=== PATIENT | male | born 1980 | race Caucasian/White ===

== ENCOUNTER 2021-06-06 10:06 | Outpatient (REF) | payer OTHER, SELFPAY ==
[2021-06-06 11:10] LABS: MANUAL DIFF FLAG NO
[2021-06-06 11:17] LABS: Basophils Absolute Auto 0.1 X10*3/uL (0.0-0.2); Eosinophils Absolute Auto 0.2 X10*3/uL (0.0-0.4); Eosinophils Percent Auto 2.4 % (0-4); Hemoglobin 15.1 g/dl (14.0-18.0); Imm Gran Abs Auto 0.03 X10*3/uL (0.00-0.03); Imm Gran Pct Auto 0.5 % (0.0-0.4); Lymphocytes Absolute Auto 1.9 X10*3/uL (1.2-4.9); Lymphocytes Percent Auto 30.4 % (20-40); Mean Corpuscular HGB Conc 33.6 g/dl (31.0-36.0); Mean Corpuscular Hemoglobin 30.6 pg (27.0-33.0); Mean Corpuscular Volume 91.1 fL (80-98); Mean Platelet Volume 9.5 fL (9.4-12.4); Monocytes Absolute Auto 0.5 X10*3/uL (0.1-1.2); Monocytes Percent Auto 7.4 % (2-11); Neutrophils Absolute Auto 3.6 X10*3/uL (2.0-8.3); Neutrophils Percent Auto 58.3 % (45-73); Platelet Count 309 X10*3/uL (160-400); Red Blood Count 4.94 X10*6/uL (4.60-5.80); Red Cell Distribution Width 12.9 % (11.0-16.0); White Blood Count 6.2 X10*3/uL (4.8-10.8)
[2021-06-06 11:46] LABS: Alanine Aminotransferase 17 U/L (0-40); Albumin Level 4.3 g/dL (3.5-5.0); Alkaline Phosphatase 56 U/L (39-117); Anion Gap 10 (12-20); Aspartate Amino Transferase 18 U/L (5-37); Bilirubin Total 0.7 mg/dL (0.0-1.0); Blood Urea Nitrogen 14 mg/dL (9-16); Calcium 9.6 mg/dL (8.4-10.2); Carbon Dioxide 27 mmol/L (22-29); Chloride 105 mmol/L (96-108); Cholesterol 202 mg/dL; Estimated Glomerular Filt Rate > 60; Glucose Fasting 82 mg/dL (60-99); HDL Cholesterol 48 mg/dL; LDL Cholesterol Calculated 143 mg/dl; Potassium 4.4 mmol/L (3.3-5.1); Sodium 138 mmol/L (135-145); Total Protein 6.8 g/dL (6.5-8.0); Triglycerides 56 mg/dL
[2021-06-06 12:09] LABS: Prostate Specific Antigen 0.46 ng/mL (<0.05-4.0)
== END 2021-06-06 10:07 | disposition home or self-care (01) ==
LOC: HO.LAB 10:06
PROVIDERS: PCP Internal Medicine Medical Oncology; Visit Provider Internal Medicine Medical Oncology
DX: Z00.00 Encounter for general adult medical examination without abnormal findings (principal); Z12.5 Encounter for screening for malignant neoplasm of prostate
CPT/HCPCS: 36415; 80053; 80061; 84153; 85025

== ENCOUNTER 2024-12-26 18:41 | Emergency (ER) | payer OTHER, SELFPAY ==
[2024-12-26 18:57] VITALS: BP 107/71; PULSE 99; RESP 16; TEMP 37.3; O2SAT 98; BMI 25.1
[2024-12-26 19:16] LABS: MANUAL DIFF FLAG NO
[2024-12-26 19:17] LABS: Basophils Percent Auto 0.6 % (0-2); Eosinophils Absolute Auto 0.1 X10*3/uL (0.0-0.4); Eosinophils Percent Auto 2.4 % (0-4); Hematocrit 44.1 % (42.0-52.0); Hemoglobin 15.1 g/dl (14.0-18.0); Imm Gran Abs Auto 0.01 X10*3/uL (0.00-0.03); Imm Gran Pct Auto 0.3 % (0.0-0.4); Lymphocytes Absolute Auto 0.6 X10*3/uL (1.2-4.9); Lymphocytes Percent Auto 18.5 % (20-40); Mean Corpuscular HGB Conc 34.2 g/dl (31.0-36.0); Mean Corpuscular Hemoglobin 29.4 pg (27.0-33.0); Mean Platelet Volume 9.9 fL (9.4-12.4); Monocytes Absolute Auto 0.5 X10*3/uL (0.1-1.2); Neutrophils Absolute Auto 2.2 x10*3/uL (2.0-8.3); Neutrophils Percent Auto 63.2 % (45-73); Platelet Count 153 X10*3/uL (160-400); Red Blood Count 5.13 X10*6/uL (4.60-5.80); Red Cell Distribution Width 12.8 % (11.0-16.0); White Blood Count 3.4 X10*3/uL (4.8-10.8)
[2024-12-26 19:31] LABS: Alanine Aminotransferase 26 U/L (0-40); Albumin Level 3.9 g/dL (3.5-5.0); Alkaline Phosphatase 56 U/L (39-117); Anion Gap 13 (12-20); Aspartate Amino Transferase 30 U/L (5-37); Bilirubin Total 0.7 mg/dL (0.0-1.0); Blood Urea Nitrogen 15 mg/dL (9-16); Calcium 8.9 mg/dL (8.4-10.2); Carbon Dioxide 24 mmol/L (22-29); Chloride 101 mmol/L (96-108); Creatinine Clr Calc Pharmacy 87.5; Estimated Glomerular Filt Rate > 60; Glucose Random 93 mg/dL (60-115); Lipase 13 U/L (8-78); Sodium 134 mmol/L (135-145); Total Protein 6.9 g/dL (6.5-8.0)
--- NOTE | 2024-12-26 19:43 | ED.GENADULT ---
HPI - General Adult General Chief complaint: Fever Stated complaint: fever for more than 3 days highest 105.4 lastnight Time Seen by Provider: 12/26/24 21:08 Source: patient Mode of arrival: ambulatory Limitations: no limitations History of Present Illness ED Provider: HPI narrative: patient has been having on and off fever for last 3 days no cough no shortness a breath no rash no joint pain no abdominal pain no nausea no vomiting no upper respiratory symptoms patient is a family member was sick with 5th disease 1 week ago denies any urinary complaints for last 24 hours patient has been having diarrhea 6- 7 times last bowel movement was in afternoon, no nausea no vomiting no abdominal pain no blood in the urine no recent antibiotic intake no recent travel diarrhea is getting better now no urinary complaints Related Data Allergies Allergy/AdvReac Type Severity Reaction Status Date / Time No Known Allergies Allergy Verified 12/26/24 19:01 Review of Systems Review of Systems: Yes all other systems are reviewed and are negative PMFSH Social History Social History Alcohol intake: never Smoked in Last 30 Days: No Use of substances other than those prescribed or required for medical reasons: Yes Substance Use Type: Marijuana Advance Directives: No Advance Directives Information Provided: No Do you have a plan to hurt others: No Plan Physical Exam ED Vital Signs: Vital Signs - 24 hr 12/26/24 18:57 12/26/24 21:11 12/26/24 21:58 Temperature 99.2 F 99.9 F 99.1 F Pulse Rate 99 93 90 Respiratory Rate 16 18 18 Blood Pressure 107/71 127/74 125/83 Pulse Oximetry 98 97 98 Oxygen Delivery Method Room Air Room Air Room Air 12/26/24 23:18 12/26/24 23:19 Temperature 98.3 F 98.3 F Pulse Rate 89 89 Respiratory Rate 16 16 Blood Pressure 115/68 115/68 Pulse Oximetry 96 96 Oxygen Delivery Method Room Air Room Air BMI result Body Mass Index 25.1 Appearance: Alert. Oriented X3. No acute distress. Eyes: PERRLA, No Nystagmus ENT: Pharynx normal. Oral Mucosa moist Neck: Normal inspection. Neck supple. CVS: Normal heart rate and rhythm. Pulses normal. Respiratory: No respiratory distress. Equal air entry bilateral, no wheezing/rales/rhonchi Abdomen: Soft and nontender. Bowel sounds are present, no mass palpable, no CVA tenderness Skin: Skin warm and dry. Normal skin color. Normal skin turgor. Extremities: No lower extremity edema. No calf tenderness Neuro: Oriented X 3. No motor deficit. No sensory deficit.No cerebellar signs , cranial nerves II-XII intact Course Course Course Narrative: RME: 44-year-old male presents to ED for fever and diarrhea. Patient states no abdominal pain nausea, vomiting, chest pain, shortness of breath or coughing. SARs labs stool sample ordered. Medical Decision Making Medical Decision Making [facility] Narrative: patient with fever without any other symptoms except for the diarrhea which is getting better lab workup is negative for any bacterial infection likely viral infection norovirus as the cause will check the urine to rule out UTI plan to discharge the patient for supportive treatment Lab Data [facility] Lab Attestation statement: I reviewed the patient's lab results. 12/26/24 19:11 12/26/24 19:11 Labs: Lab Results 12/26/24 12/26/24 12/26/24 Range/Units 19:11 22:03 22:04 WBC 3.4 L (4.8-10.8) X10*3/uL RBC 5.13 (4.60-5.80) X10*6/uL Hgb 15.1 (14.0-18.0) g/dl Hct 44.1 (42.0-52.0) % MCV 86.0 (80.0-98.0) fL MCH 29.4 (27.0-33.0) pg MCHC 34.2 (31.0-36.0) g/dl RDW 12.8 (11.0-16.0) % Plt Count 153 L (160-400) X10*3/uL MPV 9.9 (9.4-12.4) fL Immature Gran % (Auto) 0.3 (0.0-0.4) % Neut % (Auto) 63.2 (45-73) % Lymph % (Auto) 18.5 L (20-40) % [place] % (Auto) 15.0 H (2-11) % Eos % (Auto) 2.4 (0-4) % Baso % (Auto) 0.6 (0-2) % Lymph # (Auto) 0.6 L (1.2-4.9) X10*3/uL [place] # (Auto) 0.5 (0.1-1.2) X10*3/uL Eos # (Auto) 0.1 (0.0-0.4) X10*3/uL Baso # (Auto) 0.0 (0.0-0.2) X10*3/uL Abs Immat Gran (auto) 0.01 (0.00-0.03) X10*3/uL Absolute Neuts (auto) 2.2 (2.0-8.3) x10*3/uL Absolute Nucleated RBC 0.000 (0.0-0.012) X10*3/uL Nucleated RBC % (auto) 0.0 (0.0-0.2) /100WBC Sodium 134 L (135-145) mmol/L Potassium 4.0 (3.3-5.1) mmol/L Chloride 101 (96-108) mmol/L Carbon Dioxide 24 (22-29) mmol/L Anion Gap 13 (12-20) BUN 15 (9-16) mg/dL Creatinine 1.02 (0.5-1.4) mg/dL Estim Creat Clear Calc 87.5 Estimated GFR > 60 Random Glucose 93 (60-115) mg/dL Calcium 8.9 D (8.4-10.2) mg/dL Total Bilirubin 0.7 (0.0-1.0) mg/dL AST 30 (5-37) U/L ALT 26 (0-40) U/L Alkaline Phosphatase 56 (39-117) U/L Total Protein 6.9 (6.5-8.0) g/dL Albumin 3.9 (3.5-5.0) g/dL Lipase 13 (8-78) U/L Urine Color Yellow Urine Appearance Clear Urine pH 5.5 (5.0-9.0) Ur Specific [place] 1.020 (1.005-1.025) Urine Protein Trace (Neg-Trace) mg/dL Urine Glucose (UA) Negative (Negative) mg/dL Urine Ketones 80 (Negative) mg/dL Urine Blood Negative (Negative) Urine Nitrite Negative (Negative) Ur Leukocyte Esterase Negative (Negative) C. difficile Tox B Gene NEGATIVE (Negative) Influenza Type A (PCR) NEGATIVE (Negative) Influenza Type B (PCR) NEGATIVE (Negative) RSV RNA Qual (PCR) NEGATIVE (Negative) SARS-CoV-2 RNA (RT-PCR) NEGATIVE (Negative) Discharge Plan Discharge Clinical Impression: Viral infection Patient Disposition: Home, Self-Care Instructions: Viral Syndrome (ED) Additional Instructions: drink plenty of fluids take Tylenol/ Motrin as advised for fever follow up with your PCP if not better Interventions: ED Discharge Assessment Last Done: 12/26/24 23:19 Discharge Date/Time: 12/26/24 23:20 Print Language: Portuguese
[2024-12-26 19:53] LABS: Influenza A PCR NEGATIVE (Negative); Influenza B PCR NEGATIVE (Negative); Resp Syncy Virus RNA Qual PCR NEGATIVE (Negative); SARS COV2 PCR INHOUSE NEGATIVE (Negative)
--- OUTSIDE RECORDS SUMMARY | 2024-12-26 21:02 | XMS_ITS ---
Author Organization [facility] Address [address] [place] [phone] Care Team Providers Care Counter Top Maker Name Role Phone Esteban DE LA CRUZ, Bang Primary Care Provider Verito Brown Jr, [facility] REASON FOR VISIT called patient 3 times and no answer Encounters Encounter Location Date Provider Diagnosis [facility] [address] [place] [phone] 11/10/2024 Ramsey Vasquez Jr Plan Of Treatment No Information Progress Notes * AAYUSH SHOEMAKERDOB:1979 (44 yo M)Acc No.[id number]:11/10/2024 Patient:?AAYUSH SHOEMAKER :1980???Age:44 Y???Sex:Male Address:[address] [place] [address], [address] * true * Date:? Generated for Aguilar stovall/Gunjan/eTransmitting on:?12/26/2024 09:02 PM EDT
--- OUTSIDE RECORDS SUMMARY | 2024-12-26 21:02 | XMS_ITS | Patient Health Record ---
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 Name Role Phone Bang Orellana Primary Care Provider Allergies Allergen (clinical drug ingredient) Drug/Non Drug Allergy documented on EMR Reaction Allergy Type Onset Date Status No Known Drug Allergy Unknown Drug Allergy Active Results Component Value Reference Range Notes URINE DIP STICK Reviewed date:10/21/2024 02:31:44 PM Interpretation: Performing Lab: Notes/Report: SG 1.030 1.005 - 1.025 pH 5.0 5.0 - 9.0 JORGE LUIS Negative Negative - NIT Negative Negative - PRO 15 Negative - Trace GLU Negative Negative - KET 15 Negative - UBG 0.2 0.1 - 1.8 LIZY 1 0.2 - 1.3 BLD Negative Negative - Reason For Referral Reason Consult and Treat Screen for Colon Cancer Diagnosis 1 Screen for colon can cer (Z12.11) Referral Organization Bang Orellana III, MD Referring Provider First Name Bang Referring Provider Last Name Esteban Referring Provider Speciality Internal M edicine Referred Provider Ramsey Vasquez Referred Provider Specialty Gastroentero logy General Notes DPham 10/24/2024 11:39:22 AM > Referral and progress note faxed Referral Priority Routine Medications Medication SIG (Take, Route, Frequency, Duration) Notes Start Date End Date Status Cyclobenzaprine HCl 10 MG 1 tablet at bedtime Orally three times a a day When needed 07/12/2024 Active Sildenafil Citrate 100 MG TAKE 1 TABLET BY MOUTH EVERY DAY NEEDED Active Social History Tobacco Use: Social History Observation Description Date Details (start date - stop date) Former Smoker NA - NA Sex Assigned At : Social History Observation Description Sex Assigned At Male Tobacco Control (Standard) Question Answer Notes Tobacco use: Former smoker How long has it been since you last smoked? 1-5 years Additional Findings: Tobacco non-user Ex-cigaret te smoker AUDIT-C (Standard) Question Answer Notes Did you have a drink contain ing alcohol in the past year? Yes How often did you have six o r more drinks on one occasion in the past year? Less than monthly (1 point) How many drinks did you have on a typical day when you were drinking in the past year? 1 or 2 drinks (0 point) How often did you have a dri nk containing alcohol in the past year? Never (0 point) Points 1 Interpretation Negative Problems Problem Type SNOMED Code ICD Code Onset Dates Problem Status W/U Status Risk Notes Problem 3393355 Former smoker (Z87.891) Active confirmed He is vaping. He has stopped smoking cigarettes. Problem 709387597 Chronic sinusitis, unspecified (J32.9) Active confirmed Problem 723860180 Deviated nasal septum (J34.2) Active confirmed He is completely free of symptoms from this process. No therapy is necessary. Problem Erectile dysfunction (disorder) (010251326) Erectile dysfunction, unspecified erectile dysfunction type (N52.9) Active confirmed This problem is well compensated with medication. Problem 103052113 Chronic insomnia (F51.04) Active confirmed He found melatonin helpful but his insomnia persists. I prescribed trazodone to take along with the melatonin. Problem 34989577 Bilateral impacted cerumen (H61.23) Active confirmed Bilateral warm water in your lavage was conducted. The impactions were removed. No complications were had. He reported the discomfort resolved and a hearing improved. Problem 229018008 Lumbar back pain (M54.50) Active confirmed Vital Signs Heart Rate 71 /min 10/21/2024 Temperature 99.1 degrees Fahrenheit 10/21/2024 Blood pressure diastolic 76 mm Hg 10/21/2024 Height 70.8 in 12/26/2024 Blood pressure systolic 130 mm Hg 10/21/2024 Weight 170 lbs 12/26/2024 BMI 23.84 kg/m2 12/26/2024 Encounters Encounter Location Date Provider Diagnosis Bang Orellana III, MD [address] [place] [address] [place] [address] 12/26/2024 Bang Orellana III, MD [address] [place] [address] [place] [address] 07/12/2024 Bang Orellana Strain of lumbar paraspinous muscle, initial encounter S39.012A and Former smoker Z87.891 Bang Orellana III, MD [address] [place] [address] [place] [address] 07/14/2024 Bang Orellana Chronic insomnia F51.04 ; Acute left-sided low back pain without sciatica M54.50 ; Erectile dysfunction, unspecified erectile dysfunction type N52.9 ; Former smoker Z87.891 and BPH (benign prostatic hyperplasia) N40.0 Bang Orellana III, MD [address] [place] [address] [place] [address] 10/21/2024 Bang Orellana Chronic insomnia F51.04 ; Erectile dysfunction, unspecified erectile dysfunction type N52.9 ; Former smoker Z87.891 and Deviated nasal septum J34.2 Bang Orellana III, MD [address] [place] [address] [place] [address] 09/16/2024 Bang Orellana Assessments Encounter Date Diagnosis (ICD Code) Assessment Notes Treatment Notes Treatment Clinical Notes 07/12/2024 Former smoker (ICD-10 - Z87.891) He is vaping. He has stopped smoking cigarettes. 07/12/2024 Strain of lumbar paraspinous muscle, initial encounter (ICD-10 - S39.012A) He was staying out of work for the remainder of the week. He will use a heating. For 20 minutes 3 times a day on medium heat. He will use ibuprofen. I have prescribed cyclobenzaprine 3 times a day for a week. 07/14/2024 Chronic insomnia (ICD-10 - F51.04) He found melatonin helpful but his insomnia persists. I prescribed trazodone to take along with the melatonin. 07/14/2024 Acute left-sided low back pain without sciatica (ICD-10 - M54.50) He says the back pain is in proving and he is able to conduct all of the activities of daily life without severe pain. The pain returns if he does heavy lifting or exertion. He will continue with conservative measures. 10/21/2024 Erectile dysfunction, unspecified erectile dysfunction type (ICD-10 - N52.9) This problem is well compensated with medication. 10/21/2024 Chronic insomnia (ICD-10 - F51.04) He found melatonin helpful but his insomnia persists. I prescribed trazodone to take along with the melatonin. 07/14/2024 Erectile dysfunction, unspecified erectile dysfunction type (ICD-10 - N52.9) This problem is well compensated with medication. 10/21/2024 Former smoker (ICD-10 - Z87.891) He is vaping. He has stopped smoking cigarettes. 07/14/2024 Former smoker (ICD-10 - Z87.891) He is vaping. He has stopped smoking cigarettes. 10/21/2024 Deviated nasal septum (ICD-10 - J34.2) He is completely free of symptoms from this process. No therapy is necessary. 07/14/2024 BPH (benign prostatic hyperplasia) (ICD-10 - N40.0) He rises from sleep once a night. We discussed lifestyle modification as an effective means of controlling nocturia at his age. Plan Of Treatment Pending Test Test Name Order Date PROFILE, FASTING (COMPREHENSIVE METABOLI C) 05/10/2019 PROFILE, FASTING (COMPREHENSIVE METABOLI C) 06/11/2022 PROFILE, FASTING (COMPREHENSIVE METABOLI C) 09/03/2016 PROFILE, FASTING (COMPREHENSIVE METABOLI C) 06/04/2021 PROFILE, FASTING (COMPREHENSIVE METABOLI C) 07/25/2015 PROFILE, FASTING (COMPREHENSIVE METABOLI C) 05/30/2020 PROFILE, FASTING (COMPREHENSIVE METABOLI C) 10/21/2024 PROFILE, RANDOM (COMPREHENSIVE METABOLIC ) 07/28/2014 LIPID PANEL 05/30/2020 LIPID PANEL 05/10/2019 LIPID PANEL 07/28/2014 LIPID PANEL 09/03/2016 LIPID PANEL 07/25/2015 PSA, TOTAL 10/21/2024 PSA, TOTAL 05/30/2020 PSA, TOTAL 06/11/2022 PSA, TOTAL 05/10/2019 PSA, TOTAL 06/04/2021 CBC w DIFF 07/25/2015 CBC w DIFF 05/30/2020 CBC w DIFF 06/11/2022 CBC w DIFF 07/28/2014 CBC w DIFF 05/10/2019 CBC w DIFF 09/03/2016 CBC w DIFF 06/04/2021 TESTOSTERONE, TOTAL 07/25/2015 CBC WITH AUTO DIFF 10/21/2024 Lipid Panel 10/21/2024 Lipid Panel 06/11/2022 Next Appt Details Provider Name:Bang Orellana, 10/27/2025 02:15:00 PM, [address] [place] [address] , [address], [place], [phone], Insurance Providers Payer Name Payer Address Payer Phone Subscriber Number Group Number Insured Name Patient Relationship to Insured Coverage Start Date Coverage End Date [employer] ([employer]) [address] [place] [id number] Brian Lai Self - patient is the insured Medical (General) History Medical History History ICD Code sinusitis intermittent low back pain nasal septum deviated to right insomnia due to stress smoker Covid19 January 2022 Lower back pain Surgical History Surgery Date(Month/Year) No history Hospitalization History Reason Date(Month/Year) No history
--- OUTSIDE RECORDS SUMMARY | 2024-12-26 21:02 | XMS_ITS ---
Author Organization Bang Orellana III, MD Address [address] [place] [address] [place] [address] Care Team Providers Care Collections Manager Name Role Phone Bang Orellana Primary Care Provider REASON FOR VISIT Rx Request Medications Medication SIG (Take, Route, Frequency, Duration) Notes Start Date End Date Status Cyclobenzaprine HCl 10 MG 1 tablet at bedtime Orally three times a a day for 30 days When needed 07/12/2024 01/14/2025 Active Social History Sex Assigned At : Social History Observation Description Sex Assigned At Male Encounters Encounter Location Date Provider Diagnosis Bang Orellana III, MD [address] [place] [address] [address] [facility] [place] [address] 09/16/2024 Bang Orellana Plan Of Treatment Medication Medication Name Sig Start Date Stop Date Notes Cyclobenzaprine HCl 10 MG 1 tablet at be dtime Orally three times a a day for 30 days 07/12/2024 01/14/2025 Next Appt Details Provider Name:Bang Orellana, 10/27/2025 02:15:00 PM, [address] [place] [address] [place], [address], Progress Notes * Brina JAMADOB:1979 (44 yo M)Acc No.[id number]:09/16/2024 Patient:?Brian JAMA :1980???Age:44 Y???Sex:Male Address: [place], [address] * Refills? Refill Cyclobenzaprine HCl Tablet, 10 MG, Orally, 30, 1 tablet at bedtime, three times a a day, 30 days, Refills=3 * true * Date:? Generated for Aguilar stovall/Gunjan/Huey on:?12/26/2024 09:02 PM EDT
--- OUTSIDE RECORDS SUMMARY | 2024-12-26 21:02 | XMS_ITS ---
Author Organization Bang Orellana III, MD Address [address] [place] [place] [address] Care Team Providers Care It Security Analyst Name Role Phone Bang Orellana Primary Care Provider Allergies Allergen (clinical drug ingredient) Drug/Non Drug Allergy documented on EMR Reaction Allergy Type Onset Date Status No Known Drug Allergy Unknown Drug Allergy Active REASON FOR VISIT Telehealth Medications Medication SIG (Take, Route, Frequency, Duration) [...] Additional Findings: Tobacco non-user Ex-cigaret te smoker Vital Signs Height 70.8 in 12/26/2024 Weight 170 lbs 12/26/2024 BMI 23.84 kg/m2 12/26/2024 Encounters Encounter Location Date Provider Diagnosis Bang Orellana III, MD [address] [place] [address] [place] [address] 12/26/2024 Bang Orellana Plan Of Treatment Medication Medication Name Sig Start Date Stop Date Notes Cyclobenzaprine HCl 10 MG 1 tablet at be dtime Orally three times a a day 07/12/2024 Sildenafil Citrate 100 MG TAKE 1 TABLET BY MOUTH EVERY DAY NEEDED Next Appt Details Provider Name:Bang Davenportne, 10/27/2025 02:15:00 PM, [address], [address], [place], [address], Progress Notes * Brian JAMADOB:1979 (44 yo M)Acc No.[id number]:12/26/2024 Patient:?Brian JAMA Provider:?Bang Orellana MD :1980???Age:44 Y???Sex:Male Lee e:12/26/2024 Address:[address] [place], [place] [id number] Subjective: * Chief Complaints: * ???1. Telehealth. * HPI: ???:? sat last fever 102, sick yesterday, last night 105, breath ok, diarrhea no congested. ?Telehealth?Location of provider rendering services:?{...} [address] [facility] [address] ?Location of patient:?address listed in demographics for today's visit ?Patient identification confirmed using:?Name, ?Telehealth method:?Telephone only. Patient not visible to care provider. ?Consent:?Patient verbally consented to treatment, Patient verbally consented to billing insurance company, Patient informed of any privacy concerns related to method of visit ?Total time spent with patient (mins)?15 * ROS:?General/Constitutional:?pain?only normal aches and pains.?Chills?denies.?Fatigue?admits.?Fever?denies.?ENT:?Decreased hearing?denies.?Respiratory:?Cough?denies.?Cardiovascular:?Chest pain with exertion?denies.?Dyspnea on exertion?denies.?Shortness of breath?denies.?Gastrointestinal:?Constipation?denies.?Decreased appetite?denies.?Diarrhea?denies.?Heartburn?denies.?Nausea?denies.?Rectal bleeding?denies.?Vomiting?denies.?Hematology:?bruising?denies.?petechiae?denies.?Swollen glands?none have been noted.?Genitourinary:?Frequent urination?denies.?Musculoskeletal:?Muscle aches?denies.?Painful joints?denies.?Sciatica?denies.?Weakness?denies.?Skin:?Itching?denies.?Rash?denies.?Skin lesion(s)?denies.?Neurologic:?Difficulty speaking?denies.?Dizziness?denies.?Headache?denies.?Low back pain?denies.?Psychiatric:?Depressed mood?denies.? * Medical History:?Sinusitis, Intermittent low back pain, Nasal septum deviated to right, Insomnia due to stress, Smoker, Covid19 January 2022, Lower back pain. * Surgical History:?No history . * Hospitalization/Major Diagno stic Procedure:?No history . * Family History:?Father: nakul gomes 67 yrs, Alcoholism.?Mother: alive 69 yrs, diagnosed with HTN.?1 sister(s) - healthy. 1 son(s) . .? His father is alive and well at the age of 64. His mother is 62 years old and alive and suffers hypertension and alcoholism. He has one healthy sister and no brothers. He is to [place] and has one son Gallo and a daughter Christine. He is not aware of any family history of substance abuse or mental illness or addiction other than his mother's alcoholism. Toña had breast cancer 2019 Sister diagnosed with breast cancer in 2019. * Social History:?Tobacco Use:?Tobacco Control (Standard)?Tobacco use:?Former smoker ?How long has it been since you last smoked??1-5 years ?Additional Findings: Tobacco non-user?Ex-cigarette smoker ???He was born in [place]. 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 He is to [place] since November 2014 and has one son Gallo . He does not drink alcohol or take illegal drugs. Smoking: No, Vaping: Yes. * Medications:?Taking Cycloben zaprine HCl 10 MG Tablet 1 tablet at bedtime Orally three times a a day When needed, Taking Sildenafil Citrate 100 MG Tablet TAKE 1 TABLET BY MOUTH EVERY DAY NEEDED , Medication List reviewed and reconciled with the patient * Allergies:?No Known Drug All ergy. Objective: * Vitals:?Ht: 70.8, Wt: 170, B LA:23.84, Ht-cm: 179.83, Wt-k.11. Assessment: Plan: * Treatment: * Procedure Codes:?85182 SYNCH AUDIO-ONLY EST SF 10 * Images: * The named appointment provid er may or may not be the originator of this progress note, and it is not deemed complete until electronically signed by the appointment provider. Sign off status: Pending * Provider:?Bang Orellana MD Date:?11/28 Generated for Aguilar stovall/Gunjan/Benjaminsmitting on:?12/26/2024 09:02 PM EDT History and Physical Notes * HPI (History of Present Illness) Category Sub-Category Detail Notes Telehealth Location of [facility]:: {...} [address] [facility] [address] Location of patient:: address listed in demographics for today's visit Patient identification confirmed using:: Name, Telehealth method:: Telephone only. Elvira ent not visible to care provider. Consent:: Patient verbally c onsented to treatment, Patient verbally consented to billing insurance company, Patient informed of any privacy concerns related to method of visit Total time spent with patient (mins): 15
--- OUTSIDE RECORDS SUMMARY | 2024-12-26 21:02 | XMS_ITS ---
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 Name Role Phone Bang Orellana Primary Care [...] Referred Provider Specialty Gastroentero logy General Notes Pham Peña 10/24/2024 11:39:22 AM > Referral and progress note faxed Referral Priority Routine REASON FOR VISIT Annual Exam Medications Medication SIG (Take, Route, Frequency, Duration) Notes Start Date End Date Status Sildenafil Citrate 100 MG TAKE 1 TABLET BY MOUTH EVERY DAY NEEDED Active Cyclobenzaprine HCl 10 MG 1 tablet at bedtime Orally three times a a day When needed 07/12/2024 Active Social History Tobacco Use: Social History Observation Description Date Details (start date - stop date) Former Smoker NA - NA Sex Assigned At : Social History Observation Description Sex Assigned At Male Tobacco Use/Smoking Question Answer Notes Patient is a former smoker How long has it been since you last smoked? 1-5 years Tobacco Control (Standard) Question Answer Notes Tobacco [...] Problem Status W/U Status Risk Notes Problem [id number] Lumbar back pain (M54.50) Active confirmed Vital Signs Temperature 99.1 degrees Fahrenheit 10/21/19 25 Blood pressure systolic 130 mm Hg 10/21/19 25 Blood pressure diastolic 76 mm Hg 025 Heart Rate 71 /min 10/21/2024 Height 70.8 in 10/21/2024 Weight 170 lbs 10/21/2024 BMI 23.84 kg/m2 10/21/2024 Encounters Encounter Location Date Provider Diagnosis Bang Orellana III, MD [address] [place] [address] [place] [address] 10/21/2024 Bang Orellana Chronic insomnia F51.04 ; Erectile dysfunction, unspecified erectile dysfunction type N52.9 ; Former smoker Z87.891 and Deviated nasal septum J34.2 Assessments Encounter Date Diagnosis (ICD Code) Assessment Notes Treatment Notes Treatment Clinical Notes 10/21/2024 Chronic insomnia (ICD-10 - F51.04) He found melatonin helpful but his insomnia persists. I prescribed trazodone to take along with the melatonin. 10/21/2024 Erectile dysfunction, unspecified erectile dysfunction type (ICD-10 - N52.9) This problem is well compensated with medication. 10/21/2024 Former smoker (ICD-10 - Z87.891) He is vaping. He has stopped smoking cigarettes. 10/21/2024 Deviated nasal septum (ICD-10 - J34.2) He is completely free of symptoms from this process. No therapy is necessary. Plan Of Treatment Medication Medication Name Sig Start Date Stop Date Notes Sildenafil Citrate 100 MG TAKE 1 TABLET BY MOUTH EVERY DAY NEEDED Cyclobenzaprine HCl 10 MG 1 tablet at be dtime Orally three times a a day 07/12/2024 Pending Test Test Name Order Date PROFILE, FASTING (COMPREHENSIVE METABOLI C) 10/21/2024 PSA, TOTAL 10/21/2024 CBC WITH AUTO DIFF 10/21/2024 Lipid Panel 10/21/2024 Referrals Referral Date Details 10/21/2024 10/21/2024, Consult and Treat Screen for Colon Cancer, Ramsey Vasquez Next Appt Details Follow Up: 1 Year, Reason: A nnual Exam Provider Name:Bang Orellana, 10/27/2025 02:15:00 PM, [address] [place] [address] , [place], [place], [address], Progress Notes * Brian JAMADOB:1979 (44 yo M)Acc No.[id number]:10/21/2024 Progress Notes Patient:?Brian JAMA Provider:?Bang Orellana MD :1980???Age:44 Y???Sex:Male Lee e:10/21/2024 Address:[address] [place], [place] [id number] Subjective: * Chief Complaints: * ???Annual Exam * HPI: ???Depression Screening:?PHQ-9?Little interest or pleasure in doing things?Not at all ?Feeling down, depressed, or hopeless?Not at all ?Trouble falling or staying asleep, or sleeping too much?Not at all ?Feeling tired or having little energy?Several days ?Poor appetite or overeating?Not at all ?Feeling bad about yourself or that you are a failure, or have let yourself or your family down?Not at all ?Trouble concentrating on things, such as reading the newspaper or watching television?Not at all ?Moving or speaking so slowly that other people could have noticed; or the opposite, being so fidgety or restless that you have been moving around a lot more than usual?Not at all ?Thoughts that you would be better off or of hurting yourself in some way?Not at all ?Total Score?1 ?Interpretation?Minimal Depression ???COVID-19 Screening:?Questions?Have you had any new onset fever, chills, cough, congestion, sore throat, shortness of breath, muscle aches??No ???SDOH Questions:?SDOH Questions?In the past year have you been worried about losing your housing??No ?In the past year have you or any family members you live with been unable to get any of the following when it was really needed? Check all that apply:?None ???:?The patient, a 44-year-old male, presented for his annual exam. He reported intermittent lower back pain, which began around two months prior to the visit. The pain is not constant and seems to be triggered by physical exertion at work, particularly heavy lifting. The patient has been managing the pain with cyclobenzaprine, a muscle relaxant, which he takes occasionally, particularly after a physically demanding day at work. The pain does not radiate down his legs and seems to resolve with rest and heat application. The patient also mentioned that cold weather seems to exacerbate his symptoms.OB scheduled for a colonoscopy. * ROS:?General/Constitutional:?pain?Occasional mild or moderate lumbar back pain without radiation related to exertion.?Chills?denies.?Fatigue?admits.?Fever?denies.?ENT:?Decreased hearing?denies.?Respiratory:?Cough?denies.?Cardiovascular:?Chest pain with exertion?denies.?Dyspnea on exertion?denies.?Shortness of breath?denies.?Gastrointestinal:?Constipation?denies.?Decreased appetite?denies.?Diarrhea?denies.?Heartburn?denies.?Nausea?denies.?Rectal bleeding?denies.?Vomiting?denies.?Hematology:?bruising?denies.?petechiae?denies.?Swollen glands?none have been noted.?Genitourinary:?Frequent urination?denies.?Musculoskeletal:?Muscle aches?denies.?Painful joints?denies.?Sciatica?denies.?Weakness?denies.?Skin:?Itching?denies.?Rash?denies.?Skin lesion(s)?denies.?Neurologic:?Difficulty speaking?denies.?Dizziness?denies.?Headache?denies.?Low back pain?denies.?Psychiatric:?Depressed mood?denies.? * Medical History:? * Surgical History:?No history * Hospitalization/Major Diagno stic Procedure:?No history * Family History:?Father: nakul gomes 67 yrs, Alcoholism.?Mother: alive 69 yrs, diagnosed with HTN.?1 sister(s) - healthy. 1 son(s) . .? His father is alive and well at the age of 64. His mother is 62 years old and alive and suffers hypertension and alcoholism. He has one healthy sister and no brothers. He is to [facility] and has one son Gallo and a daughter Christine. He is not aware of any family history of substance abuse or mental illness or addiction other than his mother's alcoholism. Toña had breast cancer 2019 Sister diagnosed with breast cancer in 2019. * Social History:?Tobacco Use:?Tobacco Use/Smoking?Patient is a?former smoker ?How long has it been since you last smoked??1-5 years ?Tobacco Control (Standard)?Tobacco use:?Former smoker ?How long has it been since you last smoked??1-5 years ?Additional Findings: Tobacco non-user?Ex-cigarette smoker ???Drugs/Alcohol:?Drugs?Have you used drugs other than those for medical reasons in the past 12 months??No ???Drug/Alcohol:?AUDIT-C (Standard)?Did you have a drink containing alcohol in the past year??Yes ?How often did you have six or more drinks on one occasion in the past year??Less than monthly (1 point) ?How many drinks did you have on a typical day when you were drinking in the past year??1 or 2 drinks (0 point) ?How often did you have a drink containing alcohol in the past year??Never (0 point) ?Points?1 ?Interpretation?Negative ???He was born in [place]. 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 He is to [place] since November 2014 and has one son Gallo . He does not drink alcohol or take illegal drugs. Smoking: No, Vaping: Yes. * Medications:?TakingSildenafi l Citrate 100 MG Tablet TAKE 1 TABLET BY MOUTH EVERY DAY NEEDED Cyclobenzaprine HCl 10 MG Tablet 1 tablet Orally three times a a day When needed, stop date 01/14/2025, Notes to Pharmacist: PRNMedication List reviewed and reconciled with the patientTaking Sildenafil Citrate 100 MG Tablet TAKE 1 TABLET BY MOUTH EVERY DAY NEEDED Taking Cyclobenzaprine HCl 10 MG Tablet 1 tablet Orally three times a a day When needed, stop date 01/14/2025, Notes to Pharmacist: PRNMedication List reviewed and reconciled with the patient * Allergies:?No Known Drug All ergyno[Allergies Verified] Objective: * Vitals:?Ht: 70.8, Wt: 170, B SC:23.84, BP: 130/76, HR: 71, Temp: 99.1, Ht-cm: 179.83, Wt-k.11. * ???Past Orders: Lab:URINE DIP STICK * Collection Date 10/21/2024 06/04/2021 05/30/2020 Collection Time 04:00 PM Order Date 10/21/2024 06/04/2021 05/30/2020 SG 1.030 (Ref Range: 1.005 - 1.025) 1.020 1.025 pH 5.0 (Ref Range: 5.0 - 9.0) 6.0 6.5 JORGE LUIS Negative (Ref Range: Negative -) Negative neg NIT Negative (Ref Range: Negative -) Negative neg PRO 15 (Ref Range: Negative - Trace) 15 trace GLU Negative (Ref Range: Negative -) Negative normal KET 15 (Ref Range: Negative -) Negative neg UBG 0.2 (Ref Range: 0.1 - 1.8) 0.2 normal LIZY 1 (Ref Range: 0.2 - 1.3) Negative neg BLD Negative (Ref Range: Negative -) Negative neg Menstrating NR NR n/a * Examination: ???General Examination: ?GENERAL APPEARANCE:?pleasant, well nourished, well developed, in no acute distress, calm and relaxed, man.?HEAD:?atraumatic, normocephalic.?EYES:?eomi, perrla, anicteric, conjugate.?EARS:?normal.?NOSE:?septum intact.?ORAL CAVITY:?normal, unremarkable.?NECK/THYROID:?no jugular venous distention, no carotid bruit, thyroid normal.?LYMPH NODES:?no enlarged lymph nodes,spleen normal.?SKIN:?no suspicious lesions, anicteric.?HEART:?no clicks, gallops, murmurs, or rubs, regular rhythm, S1, S2 normal, no s3, or vascular bruits.?LUNGS:?clear to auscultation .?BREASTS:??no masses palpable bilaterally.?ABDOMEN:?bowel sounds normal, no ascites, no organomegaly, no mass.?RECTAL EXAM:?Deferred due to upcoming colonoscopy..?MUSCULOSKELETAL:?extremities unremarkable, no clubbing, cyanosis or edema.?PERIPHERAL PULSES:?normal.?NEUROLOGIC:?alert and oriented, cranial nerves 2-12 grossly intact, deep tendon reflexes 2+ symmetrical, motor strength normal upper and lower extremities, sensory exam intact.?PSYCH:?alert, oriented.? : ???Heart rate and rhythm:Normal, Knees: Occasionally crack but do not cause pain, Physical examination: No abnormalities. ??? Assessment: * Assessment: 1.?Chronic insomnia - F51.04 (Primary)???Notes :He found melatonin helpful but his insomnia persists. I prescribed trazodone to take along with the melatonin.???2.?Erectile dysfunction, unspecified erectile dysfunction type - N52.9???Notes :This problem is well compensated with medication.???3.?Former smoker - Z87.891???Notes :He is vaping. He has stopped smoking cigarettes.???4.?Deviated nasal septum - J34.2???Notes :He is completely free of symptoms from this process. No therapy is necessary.??? Plan: * Treatment: * Labs:? * ?Lab: PROFILE, FASTING ( COMPREHENSIVE METABOLIC) ?Lab: PSA, TOTAL ?Lab: CBC WITH AUTO DIFF ?Lab: Lipid Panel ?Lab: URINE DIP STICK (C ollection Date & Time - 10/21/2024) ? Value Reference Range ?SG 1.030 1.005 - 1.025 * ?pH 5.0 5.0 - 9.0 * ?JORGE LUIS Negative Negative - * ?NIT Negative Negative - * ?PRO 15 Negative - Trac e * ?GLU Negative Negative - * ?KET 15 Negative - * ?UBG 0.2 0.1 - 1.8 * ?LIZY 1 0.2 - 1.3 * ?BLD Negative Negative - * Procedure Codes:?27879 URINE -NO MICRO * Preventive Medicine:? ??Counseling:?Smoking/Tobacco Use?Patient counseled on the dangers of tobacco use and urged to quit.?10/21/2024 * Follow Up:?1 Year (Reason: A nnual Exam) * Images: * Sign off status: Completed true * Provider:?Bang Orellana MD Date:?09/29 Generated for Aguilar stovall/Gunjan/eTransmitting on:?12/26/2024 09:02 PM EDT History and Physical Notes * HPI (History of Present Illness) Category Sub-Category Detail Notes Depression Screening PHQ-9 Little inte rest or pleasure in doing things: Not at all Feeling down, depressed, or hopeless: No t at all Trouble falling or staying asleep, or sl eeping too much: Not at all Feeling tired or having little energy: S everal days Poor appetite or overeating: Not at all Feeling bad about yourself o r that you are a failure, or have let yourself or your family down: Not at all Trouble concentrating on thi ngs, such as reading the newspaper or watching television: Not at all Moving or speaking so slowly that other people could have noticed; or the opposite, being so fidgety or restless that you have been moving around a lot more than usual: Not at all Thoughts that you would be b darby off or of hurting yourself in some way: Not at all Total Score: 1 Interpretation: Minimal Depression COVID-19 Screening Questions Have you had any new onset fever, chills, cough, congestion, sore throat, shortness of breath, muscle aches?: No SDOH Questions SDOH Questions In the past year have you been worried about losing your housing?: No In the past year have you or any family members you live with been unable to get any of the following when it was really needed? Check all that apply:: None Examination Category Sub-Category Detail Notes General Examination GENERAL APPEARANCE: pleasant , well nourished, well developed, in no acute distress, calm and relaxed, man HEAD: atraumatic, normocep halic EYES: eomi, perrla, anicte martita, conjugate EARS: normal NOSE: septum intact NECK/THYROID: no jugular venous di stention, no carotid bruit, thyroid normal HEART: no clicks, gallops, murmurs, or rubs, regular rhythm, S1, S2 normal, no s3, or vascular bruits LUNGS: clear to auscultatio n ABDOMEN: bowel sounds normal, no ascites, no organomegaly, no mass NEUROLOGIC: alert and oriented, cranial nerves 2-12 grossly intact, deep tendon reflexes 2+ symmetrical, motor strength normal upper and lower extremities, sensory exam intact SKIN: no suspicious lesion s, anicteric PERIPHERAL PULSES: normal BREASTS: no masses palpable b ilaterally MUSCULOSKELETAL: extremities unremark able, no clubbing, cyanosis or edema LYMPH NODES: no enlarged lymph no puma,spleen normal RECTAL EXAM: Deferred due to upco ruy colonoscopy. PSYCH: alert, oriented ORAL CAVITY: normal, unremarkable Consultation Request Notes Referral Date Referring Provider Referred Provider Not es 10/21/2024 Bang Orellana Bernard Consult a nd Treat Screen for Colon Cancer
[2024-12-26 21:11] VITALS: BP 127/74; PULSE 93; RESP 18; TEMP 37.7; O2SAT 97
--- NOTE | 2024-12-26 21:15 | MHC.EDTECH ---
This pct assumed care of Patient ,vitals taken ,Patient resting quietly in bed ,Patient at bedside .
[2024-12-26 21:58] VITALS: BP 125/83; PULSE 90; RESP 18; TEMP 37.3; O2SAT 98
--- NOTE | 2024-12-26 22:05 | MHC.EDTECH ---
2200 rounding done ,vitals taken ,Stool and urine sample sample collected and sent to lab .
[2024-12-26 22:13] LABS: Appearance Urine Clear; Color Urine Yellow; Glucose Urine UA Negative (Negative); Leukocyte Esterase Urine Negative (Negative); Nitrite Urine Negative (Negative); PH 5.5 (5.0-9.0); Urine Blood Negative (Negative); Urine Ketones 80 mg/dL (Negative); Urine Protein Trace mg/dL (Neg-Trace)
--- NOTE | 2024-12-26 22:55 | PC.NURSE ---
Report given to BHAVIN Mike.
[2024-12-26 23:18] VITALS: BP 115/68; PULSE 89; RESP 16; TEMP 36.8; O2SAT 96
[2024-12-26 23:19] VITALS: BP 115/68; PULSE 89; RESP 16; TEMP 36.8; O2SAT 96
[2024-12-26 23:21] LABS: CDiff Gene PCR NEGATIVE (Negative)
[2024-12-27 09:48] LABS: Adenovirus F 40/41 Not Detected (Not Detect.); Astrovirus Not Detected (Not Detect.); Campylobacter Not Detected (Not Detect.); Cryptosporidium Not Detected (Not Detect.); Cyclospora cayetanensis Not Detected (Not Detect.); E. coli EAEC Not Detected (Not Detect.); E. coli EPEC Not Detected (Not Detect.); E. coli ETEC Not Detected (Not Detect.); E. coli STEC Not Detected (Not Detect.); Entamoeba histolytica Not Detected (Not Detect.); Giardia lamblia Not Detected (Not Detect.); Norovirus GI/GII Not Detected (Not Detect.); Plesiomonas shigelloides Not Detected (Not Detect.); Rotavirus A Not Detected (Not Detect.); Salmonella Not Detected (Not Detect.); Sapovirus Not Detected (Not Detect.); Shigella sp./EIEC Not Detected (Not Detect.); Vibrio Not Detected (Not Detect.); Vibrio Cholerae Not Detected (Not Detect.); Yersinia enterocolitica Not Detected (Not Detect.)
== END 2024-12-26 23:20 | disposition home or self-care (01) ==
PROVIDERS: Physician Assistant; Emergency Provider Internal Medicine
DX: B34.9 Viral infection, unspecified (principal); R50.9 Fever, unspecified; Z03.818 Encounter for observation for suspected exposure to other biological agents ruled out; F12.90 Cannabis use, unspecified, uncomplicated
CPT/HCPCS: 0241U; 80053; 81003; 83690; 85025; 87493; 87507; 99283; 99284